=== PATIENT | male | born 1930 | race Two or more races ===

== ENCOUNTER 2022-03-28 00:01 | Emergency (ER) | payer MEDICARE ==
[~2022-03-28] VITALS: Ht 160 cm; Wt 57.7 kg
[2022-03-28 00:11] VITALS: BP 145/76
== END 2022-03-28 01:18 | disposition left against medical advice (07) ==
LOC: EMS 00:10
DX: Z53.21 Procedure and treatment not carried out due to patient leaving prior to being seen by health care provider (principal)